=== PATIENT | female | born 2000 | race Caucasian/White ===

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

== ENCOUNTER 2023-08-13 17:00 | Emergency (ER) | payer BC ==
[2023-08-13 18:43] LABS: BASOPHILS PERCENT AUTO 0.3 % (0.0-1.0); EOSINOPHILS PERCENT AUTO 0.9 % (0.0-6.0); HEMOGLOBIN 11.5 gm/dl (12.0-16.0); LYMPHOCYTES ABSOLUTE AUTO 0.6 K/mm3 (1.0-4.8); LYMPHOCYTES PERCENT AUTO 18.1 % (24.0-44.0); MEAN CORPUSCULAR HEMOGLOBIN 31.2 pg (28.0-32.0); MEAN CORPUSCULAR HGB CONC 34.8 g/dl (32.0-36.0); MEAN CORPUSCULAR VOLUME 89.4 fl (83.0-99.0); MEAN PLATELET VOLUME 10.3 fl (9.4-12.3); MONOCYTES ABSOLUTE AUTO 0.4 K/mm3 (0.0-0.8); MONOCYTES PERCENT AUTO 12.9 % (0.0-8.0); NEUTROPHILS ABSOLUTE AUTO 2.3 K/mm3 (1.8-7.7); NEUTROPHILS PERCENT AUTO 67.8 % (41.0-71.0); PLATELET COUNT,PLT 148 K/mm3 (150-400); RED BLOOD CELL COUNT 3.69 M/mm3 (4.10-5.30); WHITE BLOOD CELL COUNT,WBC 3.42 K/mm3 (3.9-11.3)
[2023-08-13 18:52] LABS: BILIRUBIN,URINE NEGATIVE (Negative); COLOR,URINE YELLOW (Yellow); GLUCOSE,URINE NEGATIVE (Negative); KETONES,URINE 2+ (Negative); LEUKOCYTE ESTERASE,URINE TRACE (Negative); NITRITE,URINE POSITIVE (Negative); OCCULT BLOOD,URINE TRACE-LYSED (Negative); PROTEIN,URINE NEGATIVE (Negative); UROBILINOGEN,URINE 0.2 (0.2-1.0)
[2023-08-13 19:02] LABS: A/G RATIO 1.1 (1-2); ALBUMIN 3.6 g/dl (3.4-5.0); ANION GAP 13.6 (5-15); BILIRUBIN TOTAL 0.6 mg/dL (0.2-1.0); BUN/CREATININE RATIO 11.7 (14-18); C-REACTIVE PROTEIN 4.1 mg/dL (<1.0); CALCIUM 8.2 mg/dL (8.5-10.1); CREATININE 0.6 mg/dL (0.55-1.02); EST CRCL DRUG DOSING (CG) 142.01 mL/min; POTASSIUM,K 3.6 mEq/L (3.5-5.1); PROTEIN TOTAL,TP 6.8 g/dl (6.4-8.2)
[2023-08-13 19:03] LABS: APPEARANCE,URINE SLT CLOUDY (Clear)
[2023-08-13 19:04] LABS: BACTERIA,URINE MANY /hpf (FEW); MUCUS,URINE FEW /hpf (FEW); RBC,URINE 0-5 /hpf (0-5)
[2023-08-13] MEDS: Iopamidol 612 MG/ML 100 ML Bottle IVPUSH ONE (19:22)
[2023-08-13] MEDS: Sodium Chloride 0.9% 10 ML Syringe FLUSH ONE (19:41)
[2023-08-13] MEDS: Sodium Chloride 0.9% 1,000 ML IV SCH (19:50)
[2023-08-13] MEDS: cefTRIAXone 1 GM in Sodium Chloride 0.9% 100 ML IV ONE (20:12)
[2023-08-13 21:51] VITALS: BP 120/71; PULSE 67
== END 2023-08-13 21:35 | disposition home or self-care (01) ==
LOC: JD.ED 17:00
DX: N12 Tubulo-interstitial nephritis, not specified as acute or chronic (principal); N28.1 Cyst of kidney, acquired; Z90.49 Acquired absence of other specified parts of digestive tract
CPT/HCPCS: 36415; 74177; 80053; 81001; 84703; 85025; 86140; 87086; 96361; 96365; 99284; J0696; J3490; J7030; Q9967; 87088; 87186